=== PATIENT | female | born 1970 | race African-American/Black ===

== ENCOUNTER 2016-09-24 | Emergency (ER) | payer SELFPAY ==
--- NOTE | 2016-09-24 09:34 | ER Document Report ---
ED Neck/Back Problem - General Chief Complaint: Back Pain Stated Complaint: BACK PAIN Notes: Pt presents to ED for complaints of body aches. She states she has episodes of this either a couple of times a month but can go for months without pain. She has had these symptoms for 2 years. She has been evaluated by Dr. Aristeo Hector and needs referral to rheumatology for possible lupus. Denies injury. States pain is throughout back. Also c/o b/l shoulders, hands, knees and ankles. States her PCM DR. Hector is not in the office today so she can't be seen. States she also recently, "had the flu" however was not tested for the flu. Pt denies N/V/D. PMH: denies PSH: denies SH: denies Allergies: NKDA TRAVEL OUTSIDE OF THE [place] IN LAST 30 DAYS: No - Related Data Allergies/Adverse Reactions: No Known Allergies Allergy (Verified 09/24/16 08:37) Past Medical History - Social History Smoking Status: Never Smoker Chew tobacco use (# tins/day): No Frequency of alcohol use: None Drug Abuse: None Family History: Reviewed & Not Pertinent Patient has suicidal ideation: No Patient has homicidal ideation: No Renal/ Medical History: Denies: Hx Peritoneal Dialysis Past Surgical History: Reports: Hx Tubal Ligation - Immunizations Hx Diphtheria, Pertussis, Tetanus Vaccination: Yes Review of Systems - Review of Systems Constitutional: See HPI EENT: No symptoms reported Cardiovascular: No symptoms reported Respiratory: No symptoms reported Gastrointestinal: No symptoms reported Genitourinary: No symptoms reported Musculoskeletal: See HPI Neurological/Psychological: See HPI -: Yes All other systems reviewed and negative Physical Exam - Vital signs Vitals: Temp Pulse Resp BP Pulse Ox 97.7 F 78 16 117/83 100 09/24/16 08:33 09/24/16 08:33 09/24/16 08:33 09/24/16 08:33 09/24/16 08:33 - General General appearance: Appears well, Alert In distress: None - HEENT Head: Normocephalic, Atraumatic Eyes: Normal Conjunctiva: Normal Extraocular movements intact: Yes Eyelashes: Normal Pupils: PERRL Ears: Normal External canal: Normal Tympanic membrane: Normal Sinus: Normal Nasal: Normal Mouth/Lips: Normal Mucous membranes: Normal Pharynx: Normal Neck: Normal - Respiratory Respiratory status: No respiratory distress Chest status: Nontender Breath sounds: Normal Chest palpation: Normal - Cardiovascular Rhythm: Regular Heart sounds: Normal auscultation, S1 appreciated, S2 appreciated Gallop: None auscultated Pulses: Normal: Radial, Dorsalis pedis Normal capillary refill: Yes - Abdominal Inspection: Normal Distension: No distension Bowel sounds: Normal Tenderness: Nontender Organomegaly: No organomegaly - Back Back: Tender. No: Deformity/step-off, CVA tenderness, Vertebra tenderness - Extremities General upper extremity: Normal inspection, Tender, Normal color, Normal ROM, Normal strength, Normal temperature. No: Edema General lower extremity: Normal inspection, Tender, Normal color, Normal ROM, Normal strength, Normal temperature, Normal weight bearing. 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 Patient states that she is being evaluated for lupus by her primary care physician. Due to his frequent absence from the office she has not had a referral to rheumatology. At this time she states she is fully functional normally able to take Motrin, Aleve for minor relief in her pain but denies any other issues. At this time given chronic nature of her complaint no need for additional blood work or evaluation. We'll discharge home with referral for rheumatology and can follow-up with PCP - Vital Signs Vital signs: Temp Pulse Resp BP Pulse Ox 97.7 F 78 20 117/83 100 09/24/16 08:33 09/24/16 08:33 09/24/16 08:48 09/24/16 08:33 09/24/16 08:33 Discharge - Discharge Clinical Impression: Body aches Condition: Good Disposition: HOME, SELF-CARE Additional Instructions: Given that you've had these symptoms for a long time, your complaint is chronic in nature. It is indicated for you to follow up with a primary care physician to pursue appropriate diagnostic (labs) routes. 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 Prescriptions: Naproxen 500 mg PO BID #20 tablet Forms: Return to Work Referrals: JUAN MANUEL HECTOR MD [Primary Care Provider] - Follow up as needed COREY MORATAYA MD [ACTIVE STAFF] - Follow up in 1 week BEBETO CISNEROS MD [ACTIVE STAFF] - Follow up as needed
== END 2016-09-24 10:36 | disposition home or self-care (01) ==
CPT/HCPCS: 99283

== ENCOUNTER → 2017-03-07 | Outpatient (CLI) | payer SELFPAY ==
[2017-03-07 14:39] LABS: ABSOLUTE EOSINOPHILS # (AUTO) 0.1 10^3/uL (0.0-0.6); ABSOLUTE LYMPHOCYTES (AUTO) 4.1 10^3/uL (0.5-4.7); ABSOLUTE MONOCYTES (AUTO) 0.4 10^3/uL (0.1-1.4); ABSOLUTE NEUT (AUTO) 5.5 10^3/uL (1.7-8.2); BASOPHILS % (AUTO) 0.4 % (0-2); EOSINOPHILS % (AUTO) 0.8 % (0-6); HEMATOCRIT 36.1 % (36.0-47.0); HEMOGLOBIN 11.9 g/dL (12.0-15.5); HGB HCT DIFFERENCE -0.4; LYMPHOCYTES % (AUTO) 40.9 % (13-45); MEAN CORPUSCULAR HEMOGLOBIN 27.5 pg (27.0-33.4); MEAN CORPUSCULAR HGB CONC 32.9 g/dL (32.0-36.0); MEAN CORPUSCULAR VOLUME 84 fl (80-97); RED BLOOD COUNT 4.31 10^6/uL (3.72-5.28); RED CELL DISTRIBUTION WIDTH 15.1 % (11.5-14.0); SEGMENTED NEUTROPHILS % (AUTO) 53.9 % (42-78); WHITE BLOOD COUNT 10.1 10^3/uL (4.0-10.5)
[2017-03-07 14:50] LABS: APPEARANCE,URINE SLIGHTLY-CLOUDY; BILIRUBIN,URINE NEGATIVE (NEGATIVE); GLUCOSE, URINE NEGATIVE (NEGATIVE); KETONES,URINE NEGATIVE (NEGATIVE); LEUKOCYTE ESTERASE,URINE TRACE (NEGATIVE); NITRITE,URINE POSITIVE (NEGATIVE); PROTEIN,URINE NEGATIVE (NEGATIVE); URINE SPECIFIC GRAVITY 1.024; UROBILINOGEN,URINE NEGATIVE mg/dL (<2.0)
[2017-03-07 14:58] LABS: ALANINE AMINOTRANSFERASE 20 U/L (9-52); ALBUMIN 4.4 g/dL (3.5-5.0); ALKALINE PHOSPHATASE 63 U/L (38-126); ANION GAP 11 (5-19); ASPARTATE AMINO TRANSFERASE 13 U/L (14-36); BILIRUBIN,DIRECT 0.3 mg/dL (0.0-0.4); BILIRUBIN,TOTAL 0.5 mg/dL (0.2-1.3); BLOOD UREA NITROGEN 13 mg/dL (7-20); C-REACTIVE PROTEIN 7.9 mg/L (<10.0); CALCIUM 9.7 mg/dL (8.4-10.2); CARBON DIOXIDE 28 mmol/L (22-30); CHLORIDE 102 mmol/L (98-107); CREATINE KINASE 66 U/L (30-135); CREATININE RESULT 0.89 mg/dL (0.52-1.25); GLUCOSE 116 mg/dL (75-110); POTASSIUM 4.2 mmol/L (3.6-5.0); SODIUM 141.2 mmol/L (137-145); TOTAL PROTEIN 8.1 g/dL (6.3-8.2)
[2017-03-07 15:21] LABS: ERYTHROCYTE SEDIMENTATION RATE 29 mm/hr (0-20)
[2017-03-09 16:14] LABS: DNA DOUBLE STRAND ANTIBODY 5 IU/mL (0-9)
== END ==
LOC: OD 13:04
PROVIDERS: ATTEND Internal Medicine Rheumatology
DX: M32.10 Systemic lupus erythematosus, organ or system involvement unspecified (principal); M06.4 Inflammatory polyarthropathy; M25.50 Pain in unspecified joint; M79.1 Myalgia; G89.4 Chronic pain syndrome; Z79.899 Other long term (current) drug therapy
CPT/HCPCS: 36415; 80053; 81001; 82550; 85025; 85652; 86038; 86140; 86147; 86225; 86430

== ENCOUNTER 2017-10-16 19:21 | Emergency (ER) | payer SELFPAY ==
[2017-10-16 19:31] VITALS: BP 147/73
--- NOTE | 2017-10-16 20:35 | RADIOLOGY REPORT (SQ) ---
EXAM DESCRIPTION: CHEST 2 VIEWS COMPLETED DATE/TIME: 10/16/2017 8:21 pm REASON FOR STUDY: cough COMPARISON: None. EXAM PARAMETERS: NUMBER OF VIEWS: two views TECHNIQUE: Digital Frontal and Lateral radiographic views of the chest acquired. RADIATION DOSE: NA LIMITATIONS: none FINDINGS: LUNGS AND PLEURA: No opacities, masses or pneumothorax. No pleural effusion. MEDIASTINUM AND HILAR STRUCTURES: No masses or contour abnormalities. HEART AND VASCULAR STRUCTURES: Heart normal size. No evidence for failure. BONES: No acute findings. HARDWARE: None in the chest. OTHER: No other significant finding. IMPRESSION: NO ACUTE RADIOGRAPHIC FINDING IN THE CHEST. TECHNICAL DOCUMENTATION: JOB ID: [id number] [employer]- All Rights Reserved Reading location - IP/workstation name: [email or web address]
--- NOTE | 2017-10-16 20:57 | ER Document Report ---
HPI - HPI Pain Level: 4 Context: Patient is a 47-year-old female who presents emergency department with a chief complaint of cough. States it is nonproductive. Denies any shortness of breath , wheezing. States it has been going on for the past 4 months. States every day. Improves with Benadryl. States it does not improve with any cough medications. States she has not followed up with her primary care doctor regarding this. Denies any history of asthma, bronchitis. Patient is not a smoker. - EENT EENT: REPORTS: Sore Throat - CARDIOVASCULAR Cardiovascular: REPORTS: Chest pain - from coughing - RESPIRATORY Respiratory: REPORTS: Coughing - REPRODUCTIVE LMP: na Reproductive: DENIES: : Past Medical History - Social History Smoking Status: Never Smoker Chew tobacco use (# tins/day): No Frequency of alcohol use: None Drug Abuse: None Family History: Reviewed & Not Pertinent Patient has suicidal ideation: No Patient has homicidal ideation: No Pulmonary Medical History: Reports: Hx Bronchitis, Hx Pneumonia - walking x2 Renal/ Medical History: Denies: Hx Peritoneal Dialysis Past Surgical History: Reports: Hx Tubal Ligation - Immunizations Hx Diphtheria, Pertussis, Tetanus Vaccination: Yes Vertical Provider Document - CONSTITUTIONAL Agree With Documented VS: Yes Notes: PHYSICAL EXAM GENERAL: Alert, interacts well. HEENT: NCAT, pale conjunctiva, extraocular movements intact, pupils PERRL. external ear normal, no evidence of external auditory canal tenderness, blood/ drainage, cerumen impaction, TM intact without evidence of effusion, bulging, injection, MMM, Uvula midline. Airway patent. No evidence of tonsillar enlargement, peritonsillar abscess, retropharyngeal abscess. NECK: Full range of motion. Supple. Trachea midline. LUNGS: Clear to auscultation bilaterally, no wheezes, rales, or rhonchi. No respiratory distress. HEART: Regular rate and rhythm. No murmurs, gallops, or rubs. NEUROLOGICAL: Alert and oriented x4. Normal speech. PSYCH: Normal affect, normal mood. SKIN: Warm, dry, normal turgor. No rashes or lesions noted. - INFECTION CONTROL TRAVEL OUTSIDE OF THE [place] IN LAST 30 DAYS: No Course - Re-evaluation Re-evalutation: 10/16/17 20:56 Patient is a 47-year-old female who is hemodynamically stable, no acute distress and afebrile. Chest x-ray does not show any evidence of acute cardiopulmonary process. Presentation is consistent with postnasal drip. Patient without any evidence or concern for pharyngeal or peritonsillar abscess , pneumonia, underlying bronchitis, ACS, PE. Patient with a well score of 0. Patient is PERC negative. Discussed with patient's to take [id number] antihistamines and to follow-up with primary care - Vital Signs Vital signs: Temp Pulse Resp BP Pulse Ox 98.1 F 95 16 147/73 H 99 10/16/17 19:29 10/16/17 19:29 10/16/17 19:29 10/16/17 19:29 10/16/17 19:29 - Diagnostic Test Radiology reviewed: Image reviewed, Reports reviewed Discharge - Discharge Clinical Impression: Post-nasal drip Condition: Good Disposition: HOME, SELF-CARE Instructions: OTC Antihistamines ([facility]) Additional Instructions: Your presentation today is consistent with postnasal drip which is the most common cause of a nonproductive chronic cough and an adult. He can treat this with blum-gxd-vhexriq antihistamine such as Claritin or Marg[place]. She did not improve with these enda-vtu-xnqaijk medications please follow-up with your primary care doctor. Forms: Elevated Blood Pressure Referrals: JUAN MANUEL SPANGLER MD [Primary Care Provider] - Follow up in 1 week RILEY ACE MD [COMMUNITY BASED STAFF] - Follow up as needed
== END 2017-10-16 21:20 | disposition home or self-care (01) ==
LOC: ER 19:21
DX: R09.82 Postnasal drip (principal); R05 Cough; R07.89 Other chest pain; Z87.01 Personal history of pneumonia (recurrent)
CPT/HCPCS: 71046; 99283

== ENCOUNTER 2020-05-25 21:46 | Emergency (ER) | payer SELFPAY ==
[2020-05-25 22:08] VITALS: BP 131/81
[2020-05-25] MEDS ORDERED: KETOROLAC TROMETHAMINE 60 MG/2 ML SDV IM ONE (22:59)
--- NOTE | 2020-05-25 23:01 | ER Document Report ---
ED Medical Screen (RME) - General Chief Complaint: Flank Pain Stated Complaint: LOWER BACK PAIN Time Seen by Provider: 05/25/20 22:52 Primary Care Provider: JUAN MANUEL SPANGLER MD [Primary Care Provider] - Follow up as needed Mode of Arrival: Ambulatory Information source: Patient Notes: HPI; 50-year-old female presents to the emergency room complaining of sudden onset of left flank and left upper back pain that started approximately 2 hours prior to arrival. She denies any trauma or injury. Hurts to take a deep breath. Worse with movement. No medications for symptoms. Denies fevers, denies nausea, denies vomiting, denies any urinary symptoms. PE: Alert and oriented x3. Lungs: Clear to auscultation without rales, rhonchi, wheezes. Heart: Regular rate rhythm without murmurs, rubs, gallops. Positive for left CVA tenderness. Nontender to the thoracic spine there is pain over the left lateral aspect of the thoracic region. No obvious deformity noted. It is tender to palpation. I have greeted and performed a rapid initial assessment of this patient. A comprehensive ED assessment and evaluation of the patient, analysis of test results and completion of the medical decision making process will be conducted by additional ED providers. I have specifically instructed the patient or family members with the patient to immediately return to any nursing staff should anything change in the patient's condition or with their chief complaint. TRAVEL OUTSIDE OF THE [place] IN LAST 30 DAYS: No - Related Data Allergies/Adverse Reactions: No Known Allergies Allergy (Verified 06/26/19 13:24) Past Medical History - Social History Chew tobacco use (# tins/day): No Frequency of alcohol use: None Drug Abuse: Bath salts Pulmonary Medical History: Reports: Hx Bronchitis, Hx Pneumonia - walking x2 Renal/ Medical History: Denies: Hx Peritoneal Dialysis Past Surgical History: Reports: Hx Tubal Ligation - Immunizations Hx Diphtheria, Pertussis, Tetanus Vaccination: Yes Physical Exam - Vital signs Vitals: Temp Pulse Resp BP Pulse Ox 98.2 F 77 17 131/81 H 100 05/25/20 22:05 05/25/20 22:05 05/25/20 22:05 05/25/20 22:05 05/25/20 22:05 Course - Vital Signs Vital signs: Temp Pulse Resp BP Pulse Ox 98.2 F 77 17 131/81 H 100 05/25/20 22:55 05/25/20 22:05 05/25/20 22:05 05/25/20 22:05 05/25/20 22:05 Doctor's Discharge - Discharge Referrals: JUAN MANUEL SPANGLER MD [Primary Care Provider] - Follow up as needed
--- NOTE | 2020-05-26 00:05 | RADIOLOGY REPORT (SQ) ---
EXAM DESCRIPTION: X-ray two view chest. CLINICAL HISTORY: 50 years Female, Dyspnea COMPARISON: 06/26/2019 and 10/16/2017 TECHNIQUE: PA and Lateral views of the chest performed on 05/25/2020 at 11:43 PM FINDINGS: Lungs are well-expanded. There is mild volume loss in the left lung base which may be due to a combination of pleural fluid and/or atelectasis. Inflammatory changes are not entirely excluded. There is blunting of the posterior costophrenic sulci. There is partial obscuration of the left hemidiaphragm. There is no evidence of a pneumothorax. The cardiac silhouette is mildly prominent. The mediastinal contours are normal. No acute osseous abnormalities are identified. No focal soft tissue abnormalities are identified. IMPRESSION: 1. Volume loss in the left lung base which may be due to a combination of pleural fluid and/or atelectasis. Inflammatory changes are not entirely excluded. 2. Mild prominence of the cardiac silhouette.
--- NOTE | 2020-05-26 00:14 | RADIOLOGY REPORT (SQ) ---
EXAM DESCRIPTION: CT ABDOMEN PELVIS WITHOUT IV CONTRAST COMPLETED DATE/TME: 05/25/2020 23:54 CLINICAL HISTORY: 50 years, Female, flank pain COMPARISON: None. TECHNIQUE: Noncontrast images of the abdomen and pelvis were obtained. Images stored on PACS. All CT scanners at this facility use dose modulation, iterative reconstruction, and/or weight based dosing when appropriate to reduce radiation dose to as low as reasonably achievable (ALARA). [facility]: Dose Right [facility]: CareDose [facility]: Dose Right [facility]: Teradose 4D [facility]: Airizu LIMITATIONS: None. FINDINGS: Initial images through the lower chest reveal tiny bilateral pleural effusions. There is also a pericardial effusion measuring up to 13 mm in thickness. There is no urinary tract calculus or hydronephrosis. No definite mass, adenopathy, or abnormal fluid collection is identified within the abdomen or pelvis. The appendix appears within normal limits. There is no abnormal bowel dilation. There is a small fat-containing umbilical hernia. There is no acute or suspicious bony abnormality. IMPRESSION: 1. Tiny pleural effusions. There is also a 13 mm thick pericardial effusion. Correlation with echocardiography is suggested. 2. No acute abnormality is seen within the abdomen or pelvis. TECHNICAL DOCUMENTATION: Quality ID # [id number]: Final reports with documentation of one or more dose reduction techniques (e.g., Automated exposure control, adjustment of the mA and/or kV according to patient size, use of iterative reconstruction technique) copyright 2011 [employer]- All Rights Reserved
[2020-05-26 00:56] LABS: ABSOLUTE BASOPHILS # (AUTO) 0.1 10^3/uL (0.0-0.2); ABSOLUTE EOSINOPHILS # (AUTO) 0.2 10^3/uL (0.0-0.6); ABSOLUTE LYMPHOCYTES (AUTO) 2.8 10^3/uL (0.5-4.7); ABSOLUTE MONOCYTES (AUTO) 0.5 10^3/uL (0.1-1.4); ABSOLUTE NEUT (AUTO) 3.9 10^3/uL (1.7-8.2); BASOPHILS % (AUTO) 0.8 % (0-2); EOSINOPHILS % (AUTO) 3.3 % (0-6); HEMATOCRIT 35.7 % (36.0-47.0); HEMOGLOBIN 11.8 g/dL (12.0-15.5); LYMPHOCYTES % (AUTO) 37.4 % (13-45); MEAN CORPUSCULAR HGB CONC 33.1 g/dL (32.0-36.0); MEAN CORPUSCULAR VOLUME 82 fl (80-97); MONOCYTES % (AUTO) 6.5 % (3-13); PLATELET COUNT 335 10^3/uL (150-450); RED BLOOD COUNT 4.38 10^6/uL (3.72-5.28); RED CELL DISTRIBUTION WIDTH 15.5 % (11.5-14.0); TOTAL CELLS COUNTED % (AUTO) 100 %; WHITE BLOOD COUNT 7.5 10^3/uL (4.0-10.5)
[2020-05-26 01:01] LABS: APPEARANCE,URINE SLIGHTLY-CLOUDY; BILIRUBIN,URINE NEGATIVE (NEGATIVE); COLOR,URINE YELLOW; GLUCOSE, URINE NEGATIVE (NEGATIVE); KETONES,URINE NEGATIVE (NEGATIVE); LEUKOCYTE ESTERASE,URINE NEGATIVE (NEGATIVE); NITRITE,URINE NEGATIVE (NEGATIVE); PROTEIN,URINE NEGATIVE (NEGATIVE); URINE SPECIFIC GRAVITY 1.026
[2020-05-26 01:17] LABS: ALBUMIN 4.2 g/dL (3.5-5.0); ALKALINE PHOSPHATASE 66 U/L (38-126); ANION GAP 9 (5-19); ASPARTATE AMINO TRANSFERASE 21 U/L (14-36); BILIRUBIN,DIRECT 0.1 mg/dL (0.0-0.4); BILIRUBIN,TOTAL 0.3 mg/dL (0.2-1.3); BLOOD UREA NITROGEN 19 mg/dL (7-20); CALCIUM 9.5 mg/dL (8.4-10.2); CARBON DIOXIDE 28 mmol/L (22-30); CHLORIDE 101 mmol/L (98-107); GLUCOSE 119 mg/dL (75-110); POTASSIUM 4.4 mmol/L (3.6-5.0); TOTAL PROTEIN 7.8 g/dL (6.3-8.2)
[2020-05-26] MEDS ORDERED: KETOROLAC TROMETHAMINE 60 MG/2 ML SDV ONE (02:29)
--- NOTE | 2020-05-26 03:49 | ER Document Report ---
ED General - General Chief Complaint: Flank Pain Stated Complaint: LOWER BACK PAIN Time Seen by Provider: 05/25/20 22:52 Primary Care Provider: JUAN MANUEL SPANGLER MD [Primary Care Provider] - 05/28/20 Mode of Arrival: Ambulatory Notes: Patient is a 50-year-old female that comes emergency department for chief complaint of left flank pain near the left lower ribs that started a couple of hours prior to arrival. Patient also reports a vague sensation of shortness of breath. She states it hurts when she takes a deep breath as well. Pain is worse with movement. She denies trauma. She denies cough, fever, chest pain, or any constitutional sick symptoms. Patient has a past medical history of lupus, states occasionally she'll take steroids for this but she has chosen not to take any rheumatological medications despite the recommendation of her railroad cook. She denies smoking, recreational drugs, alcohol. TRAVEL OUTSIDE OF THE [place] IN LAST 30 DAYS: No - Related Data Allergies/Adverse Reactions: No Known Allergies Allergy (Verified 06/26/19 13:24) Past Medical History - General Information source: Patient - Social History Smoking Status: Never Smoker Chew tobacco use (# tins/day): No Frequency of alcohol use: None Drug Abuse: Bath salts Lives with: Alone Family History: Reviewed & Not Pertinent Patient has homicidal ideation: No Pulmonary Medical History: Reports: Hx Bronchitis, Hx Pneumonia - walking x2 Renal/ Medical History: Denies: Hx Peritoneal Dialysis Past Surgical History: Reports: Hx Tubal Ligation - Immunizations Hx Diphtheria, Pertussis, Tetanus Vaccination: Yes Review of Systems - Review of Systems Constitutional: See HPI EENT: No symptoms reported Cardiovascular: No symptoms reported Respiratory: See HPI Gastrointestinal: No symptoms reported Genitourinary: See HPI Female Genitourinary: No symptoms reported Musculoskeletal: See HPI Skin: No symptoms reported Hematologic/Lymphatic: No symptoms reported Neurological/Psychological: No symptoms reported Physical Exam - Vital signs Vitals: Temp Pulse Resp BP Pulse Ox 98.2 F 77 17 131/81 H 100 05/25/20 22:05 05/25/20 22:05 05/25/20 22:05 05/25/20 22:05 05/25/20 22:05 - Notes Notes: GENERAL: Alert, interacts well. No acute distress. HEAD: Normocephalic, atraumatic. EYES: Pupils equal, round, and reactive to light. Extraocular movements intact. ENT: Oral mucosa moist, tongue midline. Oropharynx unremarkable. Airway patent. NECK: Full range of motion. Supple. Trachea midline. No lymphadenopathy. LUNGS: Clear to auscultation bilaterally, no wheezes, rales, or rhonchi. No respiratory distress. Non-tender chest wall. HEART: Regular rate and rhythm. No murmur ABDOMEN: Soft, non-tender. Non-distended. Bowel sounds present in all 4 quadrants. GENITOURINARY: Deferred EXTREMITIES: Moves all 4 extremities spontaneously. No edema, normal radial and dorsalis pedis pulses bilaterally. No cyanosis. BACK: There is tenderness over the left lower ribs and upper lumbar to lower thoracic paraspinal musculature. No signs of trauma. Patient has slightly worse symptoms with movement. No cervical, thoracic, lumbar midline tenderness. No saddle anesthesia, normal distal neurovascular exam. Moves all extremities in full range of motion. NEUROLOGICAL: Alert and oriented x3. Normal speech. Cranial nerves II through XII grossly intact. Strength 5/5 in all extremities. PSYCH: Normal affect, normal mood. SKIN: Warm, dry, normal turgor. No rashes or lesions noted. Course - Re-evaluation Re-evalutation: Patient is very well dressed, very well-appearing, talkative, no signs of distress. Unremarkable vital signs. No fever, hypoxia. CBC, chemistry unremarkable. Urinalysis unremarkable without signs of infection. I did review CAT scan from triage and this does trace pleural effusions with questionable area in the lower lungs which cannot be definitely defined, there is also some pericardial effusion. No concerning findings otherwise. EKG performed and shows no signs of pericarditis. Patient has had no chest pain. She denies current shortness of breath and reports her symptoms earlier were vague although she insists that she feels this way before she develops walking pneumonia. Overall based on her lack of treatment for lupus I suspect autoimmune source of the abnormality noted on the CT. I discussed with Dr. Cabrales, she agrees this is most likely secondary to lupus, she recommends troponin and if this is not in the positive range (if this is still indeterminate or lower) that patient can be discharged on prednisone, antibiotics, close primary care follow-up, with strict return precautions. I discussed this with patient at length, patient states appreciation and agreement. Stable and well-appearing at time of discharge. - Vital Signs Vital signs: Temp Pulse Resp BP Pulse Ox 98.2 F 77 17 131/81 H 100 05/25/20 22:55 05/25/20 22:05 05/25/20 22:05 05/25/20 22:05 05/25/20 22:05 - Laboratory Result Diagrams: 05/26/20 00:25 05/26/20 00:25 Laboratory results interpreted by me: 05/26/20 05/26/20 05/26/20 00:25 00:25 00:25 Hgb 11.8 L Hct 35.7 L RDW 15.5 H Est GFR (MDRD) Non-Af 59 L Glucose 119 H Urine Urobilinogen 4.0 H - EKG Interpretation by Me Additional EKG results interpreted by me: EKG shows sinus rhythm at a rate of 72, QTc of 408, normal axis, no T wave inversions or ST segment changes in consecutive leads Discharge - Discharge Clinical Impression: Flank pain Condition: Stable Disposition: HOME, SELF-CARE Additional Instructions: In regards to your back pain there is no concerning findings seen in this appears to be musculoskeletal. You can take the muscle relaxer as prescribed if needed, apply heat to the area, perform gentle massage and stretches. Your imaging has nonspecific findings showing very small pleural effusions (fluid just outside the lung as we discussed), because of your symptoms, history, we are placing on prednisone and starting you on an antibiotic. Follow-up with primary care for additional management. Return if you worsen in any way including vomiting, fever, difficulty breathing, chest pain, passing out, or any other concerning symptoms. Prescriptions: Prednisone [Deltasone 10 mg Tablet] 10 mg PO ASDIR PRN #21 tablet PRN Reason: Methocarbamol [Robaxin-750] 750 mg PO QID PRN #20 tablet PRN Reason: Doxycycline Hyclate [Vibramycin 100 mg Tablet] 100 mg PO BID 7 Days #14 tablet Referrals: JUAN MANUEL SPANGLER MD [Primary Care Provider] - 05/28/20
--- NOTE | 2020-05-26 07:40 | EKG REPORT ---
SEVERITY:- NORMAL ECG - SINUS RHYTHM : Confirmed by: Paul Egan 26-May-2020 07:40:07
== END 2020-05-26 05:10 | disposition home or self-care (01) ==
LOC: ER 21:46
DX: R10.9 Unspecified abdominal pain (principal); M54.5 Low back pain; R07.81 Pleurodynia; R06.00 Dyspnea, unspecified; Z98.51 Tubal ligation status
CPT/HCPCS: 93005; 99285; 96372; 36415; 85025; 80053; 81001; 84484; 71046; 74176; 93010; J1885

== ENCOUNTER 2020-07-21 15:39 | Emergency (ER) | payer SELFPAY ==
--- NOTE | 2020-07-21 18:07 | ER Document Report ---
ED Medical Screen (RME) - General Stated Complaint: SHORTNESS OF BREATH Time Seen by Provider: 07/21/20 17:51 Primary Care Provider: JUAN MANUEL SPANGLER MD [Primary Care Provider] - Follow up as needed TRAVEL OUTSIDE OF THE [place] IN LAST 30 DAYS: No - HPI Notes: Patient is a 50 y/o female who tested positive for COVID two days ago who presents with shortness of breath for the past week. She also reports abdominal cramping and cough but denies fever, vomiting and diarrhea. Patient has a hx of lupus. - Related Data Allergies/Adverse Reactions: No Known Allergies Allergy (Verified 06/26/19 13:24) Past Medical History Pulmonary Medical History: Reports: Hx Bronchitis, Hx Pneumonia - walking x2 Renal/ Medical History: Denies: Hx Peritoneal Dialysis Past Surgical History: Reports: Hx Tubal Ligation - Immunizations Hx Diphtheria, Pertussis, Tetanus Vaccination: Yes Physical Exam - Vital signs Vitals: Temp Pulse Resp BP Pulse Ox 98.4 F 80 16 145/87 H 100 07/21/20 16:12 07/21/20 16:12 07/21/20 16:12 07/21/20 16:12 07/21/20 16:12 - Respiratory Respiratory status: No respiratory distress Breath sounds: Normal - Abdominal Bowel sounds: Normal Tenderness: Nontender Course - Re-evaluation Re-evalutation: I have greeted and performed a rapid initial assessment of this patient. A comprehensive ED assessment and evaluation of the patient, analysis of test results and completion of medical decision making process will be conducted by an additional ED providers. The patient was evaluated during the global COVID-19 pandemic and that diagnosis was suspected/considered upon their initial presentation. Their evaluation, treatment and testing was consistent with current guidelines for patients who present with complaints or symptoms that may be related to COVID-19. - Vital Signs Vital signs: Temp Pulse Resp BP Pulse Ox 98.4 F 80 16 145/87 H 100 07/21/20 16:12 07/21/20 16:12 07/21/20 16:12 07/21/20 16:12 07/21/20 16:12 Doctor's Discharge - Discharge Referrals: JUAN MANUEL SPANGLER MD [Primary Care Provider] - Follow up as needed
[2020-07-21 18:41] LABS: ABSOLUTE EOSINOPHILS # (AUTO) 0.1 10^3/uL (0.0-0.6); ABSOLUTE LYMPHOCYTES (AUTO) 1.9 10^3/uL (0.5-4.7); ABSOLUTE MONOCYTES (AUTO) 0.4 10^3/uL (0.1-1.4); ABSOLUTE NEUT (AUTO) 1.1 10^3/uL (1.7-8.2); BASOPHILS % (AUTO) 0.7 % (0-2); EOSINOPHILS % (AUTO) 1.8 % (0-6); HEMATOCRIT 36.7 % (36.0-47.0); HEMOGLOBIN 12.2 g/dL (12.0-15.5); LYMPHOCYTES % (AUTO) 55.1 % (13-45); MEAN CORPUSCULAR HEMOGLOBIN 26.9 pg (27.0-33.4); MEAN CORPUSCULAR HGB CONC 33.3 g/dL (32.0-36.0); MEAN CORPUSCULAR VOLUME 81 fl (80-97); MONOCYTES % (AUTO) 11.3 % (3-13); PLATELET COUNT 311 10^3/uL (150-450); RED BLOOD COUNT 4.55 10^6/uL (3.72-5.28); RED CELL DISTRIBUTION WIDTH 15.5 % (11.5-14.0); SEGMENTED NEUTROPHILS % (AUTO) 31.1 % (42-78); TOTAL CELLS COUNTED % (AUTO) 100 %; WHITE BLOOD COUNT 3.5 10^3/uL (4.0-10.5)
--- NOTE | 2020-07-21 18:51 | RADIOLOGY REPORT (SQ) ---
EXAM DESCRIPTION: CHEST SINGLE VIEW IMAGES COMPLETED DATE/TIME: 07/21/2020 3:35 pm REASON FOR STUDY: shortness of breath COMPARISON: 05/25/2020 EXAM PARAMETERS: NUMBER OF VIEWS: One view. TECHNIQUE: Single frontal radiographic view of the chest acquired. RADIATION DOSE: NA LIMITATIONS: None. FINDINGS: LUNGS AND PLEURA: Question of some mild nodular opacities in the right lung, nonspecific. No other consolidation. No pleural effusion or pneumothorax. MEDIASTINUM AND HILAR STRUCTURES: No masses. Contour normal. HEART AND VASCULAR STRUCTURES: Heart normal in size. Normal vasculature. BONES: No acute findings. HARDWARE: None in the chest. OTHER: No other significant finding. IMPRESSION: Question of some faint nodular opacities in the right lung which could be infectious/ in flammatory in etiology. TECHNICAL DOCUMENTATION: JOB ID: [id number] 2010 [employer]- All Rights Reserved Reading location - IP/workstation name: [email or web address]
[2020-07-21 18:52] LABS: APPEARANCE,URINE SLIGHTLY-CLOUDY; BILIRUBIN,URINE NEGATIVE (NEGATIVE); COLOR,URINE YELLOW; GLUCOSE, URINE NEGATIVE (NEGATIVE); KETONES,URINE NEGATIVE (NEGATIVE); LEUKOCYTE ESTERASE,URINE NEGATIVE (NEGATIVE); NITRITE,URINE NEGATIVE (NEGATIVE); PROTEIN,URINE NEGATIVE (NEGATIVE); URINE SPECIFIC GRAVITY 1.025; UROBILINOGEN,URINE NEGATIVE mg/dL (<2.0)
[2020-07-21 19:04] LABS: ALBUMIN 4.2 g/dL (3.5-5.0); ALKALINE PHOSPHATASE 65 U/L (38-126); ANION GAP 8 (5-19); ASPARTATE AMINO TRANSFERASE 27 U/L (14-36); BILIRUBIN,DIRECT 0.2 mg/dL (0.0-0.4); BILIRUBIN,TOTAL 0.3 mg/dL (0.2-1.3); BLOOD UREA NITROGEN 12 mg/dL (7-20); CARBON DIOXIDE 26 mmol/L (22-30); CHLORIDE 104 mmol/L (98-107); GLUCOSE 92 mg/dL (75-110); POTASSIUM 4.2 mmol/L (3.6-5.0); TOTAL PROTEIN 7.9 g/dL (6.3-8.2)
--- NOTE | 2020-07-21 21:30 | ER Document Report ---
ED Respiratory Problem - General Chief Complaint: Shortness Of Breath Stated Complaint: SHORTNESS OF BREATH Time Seen by Provider: 07/21/20 17:51 Primary Care Provider: JUAN MANUEL SPANGLER MD [Primary Care Provider] - Follow up as needed TRAVEL OUTSIDE OF THE [place] IN LAST 30 DAYS: No - HPI Notes: Patient is a 50-year-old female with a past medical history of lupus on indomethacin who presents with shortness of breath. Patient was diagnosed with Covid on July 18. She states that she first had a fever several days before then. She denies any cough or chest pain. She states that her lungs feel heavy. She denies any sore throat. No loss of taste or smell. She is eating and drinking normally. She denies any abdominal pain. She states she is having normal stool. No urinary symptoms. - Related Data Allergies/Adverse Reactions: No Known Allergies Allergy (Verified 06/26/19 13:24) Past Medical History - General Information source: Patient - Social History Smoking Status: Never Smoker Frequency of alcohol use: None Drug Abuse: None Family History: Reviewed & Not Pertinent Pulmonary Medical History: Reports: Hx Bronchitis, Hx Pneumonia - walking x2 Renal/ Medical History: Denies: Hx Peritoneal Dialysis Past Surgical History: Reports: Hx Tubal Ligation - Immunizations Hx Diphtheria, Pertussis, Tetanus Vaccination: Yes Review of Systems - Review of Systems Notes: CONSTITUTIONAL: No fever or weight loss. Positive for fatigue. SKIN: No rash. HENT: No congestion, ear pain, or sore throat. EYES: No recent vision problems or eye pain. CARDIOVASCULAR: No chest pain or edema. RESPIRATORY: No cough, congestion, or wheezing. Positive for shortness of breath. GASTROINTESTINAL: No abdominal pain, nausea, vomiting, bloody stools or diarrh ea. GENITOURINARY: No dysuria. MUSCULOSKELETAL: No joint pain or swelling. LYMPHATIC: No swollen glands. NEUROLOGIC: No seizures. No focal weakness or sensory changes. Positive for headaches. HEMATOLOGIC: No unusual bruising or bleeding. PSYCHIATRIC: No depression or anxiety. Physical Exam - Vital signs Vitals: Temp Pulse Resp BP Pulse Ox 98.4 F 80 16 145/87 H 100 07/21/20 16:12 07/21/20 16:12 07/21/20 16:12 07/21/20 16:12 07/21/20 16:12 - General General appearance: Appears well In distress: None Notes: VITAL SIGNS: Within normal limits. GENERAL: No acute distress, non-toxic appearance. HEAD: Normal with no signs of head trauma. EYES: Conjunctiva normal, no discharge. EARS: Hearing grossly intact. NOSE: Normal. NECK: Normal range of motion, no tenderness, supple, no lymphadenopathy, No adenopathy, no JVD. CHEST: Clear breath sounds bilaterally. No wheezes, rales, or rhonchi. CARDIAC: Regular rate and rhythm. VASCULAR: No Edema. ABDOMEN: Normal and soft with no tenderness, no masses or pulsatile masses. MUSCULOSKELETAL: Good range of motion of all major joints. Extremities without clubbing, cyanosis or edema. NEUROLOGICAL: Alert and oriented x 3. No focal sensory or strength deficits. Speech normal. Follows commands appropriately. PSYCHIATRIC: Normal Affect, judgement and mood. SKIN: Normal appearance with no rashes or lesions. Course - Re-evaluation Re-evalutation: 07/21/20 21:28 Patient states her doctor sent her to the ER to get a chest x-ray as she has had a history of having some fluid around her heart which is why she is on indomethacin. She has never had a blood clot before. I offered patient a CTA she does have lupus and Covid which makes her more prone to blood clots. Patient was agreeable. We will ambulate her to make sure that her pulse ox remains normal. Likely, she is having symptoms from COVID-19. Patient states she has been on multiple steroids for lupus and does not want any more steroids. I will discharge her with an inhaler. She was given strict return precautions and was told to follow-up with her PCP. 07/21/20 22:08 - Vital Signs Vital signs: Temp Pulse Resp BP Pulse Ox 98.4 F 80 16 145/87 H 100 07/21/20 16:12 07/21/20 16:12 07/21/20 16:12 07/21/20 16:12 07/21/20 16:12 - Laboratory Results Result Diagrams: 07/21/20 18:18 07/21/20 18:18 Laboratory Results Interpreted: 07/21/20 07/21/20 18:18 18:18 WBC 3.5 L MCH 26.9 L RDW 15.5 H Lymph % (Auto) 55.1 H Absolute Neuts (auto) 1.1 L Seg Neutrophils % 31.1 L Urine Ascorbic Acid 40 H Critical Laboratory Results Reviewed: No Critical Results - Radiology Results Critical Radiology Results Reviewed: No Critical Results - EKG Interpretation by Me EKG shows normal: Sinus rhythm Rate: Normal Rhythm: NSR When compared to previous EKG there are: No significant change Additional EKG results interpreted by me: 07/21/20 21:29 Sinus rhythm at rate of 76. QTc 383. No acute ST changes. EKG is similar to previous. Discharge - Discharge Clinical Impression: COVID-19 Condition: Stable Disposition: HOME, SELF-CARE Instructions: COVID-19 Guidance for Persons Under Investigation Additional Instructions: You have been diagnosed with Covid. Please self isolate until you are symptom- free and you get cleared by the health department. You may use your inhaler as needed. Please make sure you are drinking water and getting rest. Return the ER for any worsening shortness of breath or other concerning symptoms. Prescriptions: Albuterol Sulfate [Albuterol Sulfate Hfa] 2 puff IH Q6H PRN #1 [id number] PRN Reason: Referrals: JUAN MANUEL SPANGLER MD [Primary Care Provider] - Follow up in 3-5 days
--- NOTE | 2020-07-21 21:34 | RADIOLOGY REPORT (SQ) ---
EXAM DESCRIPTION: CT CHEST WITH INTRAVENOUS CONTRAST CLINICAL HISTORY: Shortness of breath, rule out pulmonary embolism,COVID-19 positive COMPARISON: None TECHNIQUE: CT of the chest was performed with intravenous contrast using pulmonary embolism protocol, followed by CTA of the pulmonary arterial vasculature, with 3D reconstruction of the pulmonary arterial vasculature. The patient was injected with 69 mL Omnipaque [address] exam was performed according to our departmental dose-optimization program, which includes one or more of the following dose reduction techniques: automated exposure control, adjustment of the mA and/or kV according to patient size, and/or use of iterative reconstruction technique. FINDINGS: There are no filling defects in the main pulmonary trunk, first order or the visualized lower order branches of the bilateral pulmonary arteries, to suggest pulmonary embolism. There is no evidence of clinically significant thoracic aortic aneurysm or thoracic aortic dissection. There is a small nonspecific pericardial effusion. There are scattered predominantly groundglass density opacities in a peripheral and basilar predominant pattern. There is a small right pleural effusion. There is no pathological axillary, supraclavicular, mediastinal or hilar lymphadenopathy. No suspicious lytic or blastic osseous lesions are identified. The visualized upper abdominal structures seen on the exam appear unremarkable. IMPRESSION: 1. No CT evidence of acute pulmonary embolism. 2. Scattered areas of groundglass density in a peripheral and basilar predominant pattern. Although nonspecific, appearance is compatible with known diagnosis of COVID-19. Additionally, there is a small right pleural effusion and small pericardial effusion.
[2020-07-21 22:13] VITALS: BP 124/87
--- NOTE | 2020-07-22 09:51 | EKG REPORT ---
SEVERITY:- BORDERLINE ECG - SINUS RHYTHM PROBABLE LEFT ATRIAL ABNORMALITY : Confirmed by: Anaya Valdez MD 22-Jul-2020 09:51:00
== END 2020-07-21 22:20 | disposition home or self-care (01) ==
LOC: ER 15:39
DX: U07.1 COVID-19 (principal); R06.02 Shortness of breath; Z98.51 Tubal ligation status
CPT/HCPCS: 36415; 71045; 71275; 80053; 81001; 83690; 84484; 84703; 85025; 93005; 93010; 99285

== ENCOUNTER 2020-07-24 15:02 | Emergency (ER) | payer SELFPAY ==
--- NOTE | 2020-07-24 16:38 | ER Document Report ---
ED Medical Screen (RME) - General Chief Complaint: Shortness Of Breath Stated Complaint: SHORTNESS OF BREATH Primary Care Provider: JUAN MANUEL SPANGLER MD [Primary Care Provider] - Follow up as needed TRAVEL OUTSIDE OF THE [place] IN LAST 30 DAYS: No - HPI Notes: 07/24/20 16:36 Rapid Medical Exam HPI: 50-year-old female presents to the ER with shortness of breath fatigue and headache. She is known Covid positive since 07/18. Was seen here just a few days ago for similar symptoms did have a CTA of her chest which noted classic groundglass opacities as well as a small right pleural effusion and small pericardial effusion. She was not hypoxic and she was discharged home. Patient says she has been using albuterol inhaler as well as Indocin without any relief. She is complaining that she has got severe fatigue and when walking to the bathroom she has to take breaks and she is getting some left-sided chest pain radiating into her back with exertion. Patient denies any current fevers. No history of PE or DVT. She is not hypoxic in triage. Physical Exam: GENERAL: Well-appearing, well-nourished and in no acute distress. HEAD: Atraumatic, normocephalic. ENT: Moist mucous membranes. RESP: Respirations even and unlabored CV- Regular rate. NEURO: No focal neurological deficits. Moves all extremities spontaneously and on command. My involvement in this patients care was limited to a rapid initial assessment. A comprehensive ED assessment and evaluation of the patient, analysis of test results, treatment, and completion of the medical decision making process will be performed by other ER providers. - Related Data Allergies/Adverse Reactions: No Known Allergies Allergy (Verified 06/26/19 13:24) Past Medical History Pulmonary Medical History: Reports: Hx Bronchitis, Hx Pneumonia - walking x2 Renal/ Medical History: Denies: Hx Peritoneal Dialysis Past Surgical History: Reports: Hx Tubal Ligation - Immunizations Hx Diphtheria, Pertussis, Tetanus Vaccination: Yes Physical Exam - Vital signs Vitals: Temp Pulse Resp BP Pulse Ox 98.0 F 88 16 133/86 H 99 07/24/20 15:05 07/24/20 15:05 07/24/20 15:05 07/24/20 15:05 07/24/20 15:05 Course - Vital Signs Vital signs: Temp Pulse Resp BP Pulse Ox 98.0 F 88 16 133/86 H 99 07/24/20 15:05 07/24/20 15:05 07/24/20 15:05 07/24/20 15:05 07/24/20 15:05 Doctor's Discharge - Discharge Referrals: JUAN MANUEL SPANGLER MD [Primary Care Provider] - Follow up as needed
[2020-07-24] MEDS ORDERED: DEXAMETHASONE SOD PHOSPHATE INJ 4 MG/1 ML VIAL IV ONE (17:32)
[2020-07-24] MEDS ORDERED: KETOROLAC TROMETHAMINE INJ/PF 30 MG/1 ML SDV IV ONE (17:33)
--- NOTE | 2020-07-24 17:58 | RADIOLOGY REPORT (SQ) ---
EXAM DESCRIPTION: CHEST SINGLE VIEW IMAGES COMPLETED DATE/TIME: 07/24/2020 5:42 pm REASON FOR STUDY: sob, covid COMPARISON: 07/21/2020 EXAM PARAMETERS: NUMBER OF VIEWS: One view. TECHNIQUE: Single frontal radiographic view of the chest acquired. RADIATION DOSE: NA LIMITATIONS: None. FINDINGS: LUNGS AND PLEURA: No opacities, masses or pneumothorax. No pleural effusion. MEDIASTINUM AND HILAR STRUCTURES: No masses. Contour normal. HEART AND VASCULAR STRUCTURES: Cardiomegaly. No antonio pulmonary edema. BONES: No acute findings. HARDWARE: None in the chest. OTHER: No other significant finding. IMPRESSION: Cardiomegaly without pulmonary edema. TECHNICAL DOCUMENTATION: JOB ID: [id number] 2010 [employer]- All Rights Reserved Reading location - IP/workstation name: [email or web address]
--- NOTE | 2020-07-24 18:28 | ER Document Report ---
ED Respiratory Problem - General Chief Complaint: Shortness Of Breath Stated Complaint: SHORTNESS OF BREATH Time Seen by Provider: 07/24/20 16:55 Primary Care Provider: JUAN MANUEL SPANGLER MD [Primary Care Provider] - Follow up as needed Notes: CHIEF COMPLAINT: Shortness of breath HPI: 50-year-old female presenting with continued shortness of breath. Patient states she was diagnosed with Covid on July 18. Patient had been diagnosed previously with a pleural effusion in May by her PCP. Patient states that she is using her albuterol inhaler but still feels very short of breath and very fatigued. Patient did not call her primary care provider for coming to the emergency department today. Patient states she was in the ER several days ago. ROS: See HPI - all other systems were reviewed and are otherwise negative Constitutional: no fever Eyes: no drainage, no blurred vision ENT: no runny nose, no sore throat Cardiovascular: no chest pain Resp: + SOB, no cough GI: no vomiting, no diarrhea, no abdominal pain : no dysuria Integumentary: no rash Allergy: no hives Musculoskeletal: no extremity pain or swelling Neurological: no numbness/tingling, no weakness MEDICATIONS: I agree with the patient medications as charted by the RN. ALLERGIES: I agree with the allergies as charted by the RN. PAST MEDICAL HISTORY/PAST SURGICAL HISTORY: Reviewed and agree as charted by RN. SOCIAL HISTORY: Reviewed and agree as charted by RN. FAMILY HISTORY: No significant familial comorbid conditions directly related to patient complaint EXAM: Reviewed vital signs as charted by RN. CONSTITUTIONAL: Alert and oriented and responds appropriately to questions. Well-appearing; well-nourished HEAD: Normocephalic; atraumatic EYES: PERRL; Conjunctivae clear, sclerae non-icteric ENT: normal nose; no rhinorrhea; moist mucous membranes; pharynx without lesions noted, no uvula edema or deviation, no tonsillar hypertrophy, phonation normal NECK: Supple without meningismus; non-tender; no cervical lymphadenopathy, no masses CARD: RRR; no murmurs, no clicks, no rubs, no gallops; symmetric distal pulses RESP: Normal chest excursion without splinting or tachypnea; breath sounds clear and equal bilaterally; no wheezes, no rhonchi, no rales, pulse oximetry 97% on room air not hypoxic ABD/GI: Normal bowel sounds; non-distended; soft, non-tender, no rebound, no guarding; no palpable organomegaly or masses. BACK: The back appears normal and is non-tender to palpation, there is no CVA tenderness EXT: Normal ROM in all joints; non-tender to palpation; no cyanosis, no effusions, no edema SKIN: Normal color for age and race; warm; dry; good turgor; no acute lesions noted NEURO: Moves all extremities equally; Motor and sensory function intact PSYCH: The patient's mood and manner are appropriate. Grooming and personal hygiene are appropriate. MDM: 50-year-old female presenting with dyspnea and fatigue in the setting of positive Covid test 6 days ago. On albuterol MDI currently not on Decadron and Zithromax. Her CT showed opacities consistent with possible Covid pneumonia from her previous visit. Will start on Decadron, Zithromax, obtain screening labs to ensure there is no other etiology for symptoms The patient was evaluated during the global COVID-19 pandemic and that diagnosis was suspected/considered upon their initial presentation. Their evaluation, treatment and testing was consistent with current guidelines for patients who present with complaints or symptoms that may be related to COVID-19 TRAVEL OUTSIDE OF THE [place] IN LAST 30 DAYS: No - Related Data Allergies/Adverse Reactions: No Known Allergies Allergy (Verified 06/26/19 13:24) Past Medical History - Social History Smoking Status: Never Smoker Family History: Reviewed & Not Pertinent Pulmonary Medical History: Reports: Hx Bronchitis, Hx Pneumonia - walking x2 Renal/ Medical History: Denies: Hx Peritoneal Dialysis Past Surgical History: Reports: Hx Tubal Ligation - Immunizations Hx Diphtheria, Pertussis, Tetanus Vaccination: Yes Physical Exam - Vital signs Vitals: Temp Pulse Resp BP Pulse Ox 98.0 F 88 16 133/86 H 99 07/24/20 15:05 07/24/20 15:05 07/24/20 15:05 07/24/20 15:05 07/24/20 15:05 Course - Re-evaluation Re-evalutation: 07/24/20 19:57 Lab work unremarkable. Chest x-ray shows mild cardiomegaly no other acute findings although I suspect based on her CT from 3 days ago she has Covid pneumonia. I will treat with Decadron, albuterol, Zithromax, follow-up PCP - Vital Signs Vital signs: Temp Pulse Resp BP Pulse Ox 98.7 F 78 16 128/77 H 100 07/24/20 19:30 07/24/20 19:30 07/24/20 19:30 07/24/20 19:30 07/24/20 19:30 - Laboratory Results Result Diagrams: 07/24/20 19:02 07/24/20 19:02 Laboratory Results Interpreted: 07/24/20 07/24/20 19:02 19:02 WBC 3.4 L MCH 26.8 L RDW 15.2 H Sodium 136.8 L Critical Laboratory Results Reviewed: No Critical Results - Radiology Results Critical Radiology Results Reviewed: No Critical Results Discharge - Discharge Clinical Impression: Pneumonia due to COVID-19 virus Dyspnea Qualifiers: Dyspnea type: shortness of breath Qualified Code(s): R06.02 - Shortness of breath; R06.00 - Dyspnea, unspecified; R06.01 - Orthopnea Condition: Stable Disposition: HOME, SELF-CARE Additional Instructions: 1. take the medications as prescribed 2. if you were prescribed an Albuterol inhaler, use it as instructed, 2 puffs every 4 hours as needed for cough/wheezing 3. call your primary care provider as soon as possible to schedule recheck appt. in the office. 4. return to the ED for any worsening condition, shortness of breath or continued fever that does not resolve with Motrin/Tylenol Prescriptions: Benzonatate [Tessalon Perles 100 mg Capsule] 100 mg PO Q8HP PRN #40 capsule PRN Reason: Dexamethasone [Decadron 4 Mg Tablet] 4 mg PO DAILY #7 tablet Azithromycin [Zithromax 250 mg Tablet] 250 mg PO ASDIR PRN #6 tablet PRN Reason: Referrals: JUAN MANUEL SPANGLER MD [Primary Care Provider] - Follow up as needed
[2020-07-24 19:18] LABS: ABSOLUTE EOSINOPHILS # (AUTO) 0.1 10^3/uL (0.0-0.6); ABSOLUTE LYMPHOCYTES (AUTO) 1.1 10^3/uL (0.5-4.7); ABSOLUTE MONOCYTES (AUTO) 0.3 10^3/uL (0.1-1.4); ABSOLUTE NEUT (AUTO) 1.9 10^3/uL (1.7-8.2); BASOPHILS % (AUTO) 0.6 % (0-2); EOSINOPHILS % (AUTO) 1.5 % (0-6); HEMATOCRIT 36.9 % (36.0-47.0); HEMOGLOBIN 12.3 g/dL (12.0-15.5); LYMPHOCYTES % (AUTO) 32.9 % (13-45); MEAN CORPUSCULAR HEMOGLOBIN 26.8 pg (27.0-33.4); MEAN CORPUSCULAR HGB CONC 33.4 g/dL (32.0-36.0); MEAN CORPUSCULAR VOLUME 80 fl (80-97); MONOCYTES % (AUTO) 9.1 % (3-13); PLATELET COUNT 305 10^3/uL (150-450); RED BLOOD COUNT 4.59 10^6/uL (3.72-5.28); RED CELL DISTRIBUTION WIDTH 15.2 % (11.5-14.0); SEGMENTED NEUTROPHILS % (AUTO) 55.9 % (42-78); TOTAL CELLS COUNTED % (AUTO) 100 %; WHITE BLOOD COUNT 3.4 10^3/uL (4.0-10.5)
[2020-07-24 19:33] LABS: ANION GAP 7 (5-19); BLOOD UREA NITROGEN 17 mg/dL (7-20); CALCIUM 9.5 mg/dL (8.4-10.2); CARBON DIOXIDE 24 mmol/L (22-30); CHLORIDE 106 mmol/L (98-107); GLUCOSE 97 mg/dL (75-110); POTASSIUM 4.6 mmol/L (3.6-5.0)
[2020-07-24 19:48] LABS: NT PRO BNP 57 pg/mL (<125)
[2020-07-24] MEDS ORDERED: AZITHROMYCIN 250 MG TABLET PO ONE (19:50)
[2020-07-24 19:53] LABS: TROPONIN I < 0.012 ng/mL
--- NOTE | 2020-07-24 19:57 | EKG REPORT ---
SEVERITY:- NORMAL ECG - SINUS RHYTHM : Confirmed by: Anaya Valdez MD 24-Jul-2020 19:56:08
[2020-07-24 21:02] VITALS: BP 125/82
== END 2020-07-24 21:01 | disposition home or self-care (01) ==
LOC: ER 15:02
DX: U07.1 COVID-19 (principal); J12.82 Pneumonia due to coronavirus disease 2019; R06.01 Orthopnea; R53.83 Other fatigue; I51.7 Cardiomegaly; R06.02 Shortness of breath
CPT/HCPCS: 93005; 99285; 96374; 96375; 36415; 85025; 80048; 84484; 83880; 71045; 93010; J1100; J1885